=== PATIENT | male | born 1935 | race Caucasian/White ===

== ENCOUNTER 2016-12-02 05:27 | Emergency (ER) | payer MEDICARE ==
[2016-12-02] MEDS ORDERED: MECLIZINE 12.5 MG TABLET PO STA (07:40)
[2016-12-02] MEDS ORDERED: MECLIZINE 12.5 MG TABLET PO ONE (07:43)
== END 2016-12-02 08:01 | disposition home or self-care (01) ==
DX: R42 Dizziness and giddiness (principal); I10 Essential (primary) hypertension; F17.200 Nicotine dependence, unspecified, uncomplicated
CPT/HCPCS: 36415; 70450; 71020; 80048; 84484; 85025; 93005; 93010; 99283; 99284; A9270

== ENCOUNTER 2021-12-17 08:00 | Outpatient (CLI) | payer BC, MEDICARE | END 2021-12-17 08:01 | disposition home or self-care (01) | LOC: LAB.S 08:00 | PROVIDERS: ATTEND Physician Assistant Medical | DX: U07.1 COVID-19 (principal) | CPT/HCPCS: 87275; 87276 ==

== ENCOUNTER 2021-12-17 08:00 | Outpatient (CLI) | payer BC, MEDICARE ==
--- NOTE | 2021-12-17 14:03 | XRAY Report ---
PROCEDURE: Chest 2 View X-Ray INDICATIONS: COUGH/CHEST CONGESTION TECHNIQUE: 2 view(s) of the chest. COMPARISON: 12/02/2016 FINDINGS: Surgical changes and devices: None. Lungs and pleura: An incomplete inspiratory result is noted, with low lung volumes and crowding of t he vascular markings. No focal infiltrates are seen. No large pneumothorax or large pleural effusion can be seen. Mediastinum: Mediastinal contours are normal. Heart size is normal. Bones and chest wall: Remote right posterior lateral rib fractures are seen, which are unchanged from the prior. Age-appropriate degenerative changes are seen. No suspicious bony abnormalities. Soft tissues appear unremarkable. IMPRESSION: Limited portable chest examination, without an acute abnormality identified. No focal in filtrates are seen. Reviewed by: Osman Prado MD on 12/17/2021 1:02 PM PIETER Approved by: Osman Prado MD on 12/17/2021 1:02 PM PIETER Station ID: [id number]
== END 2021-12-17 23:59 | disposition home or self-care (01) ==
LOC: DI.S 08:00
PROVIDERS: ATTEND Physician Assistant Medical
DX: R05.9 Cough, unspecified (principal); R09.89 Other specified symptoms and signs involving the circulatory and respiratory systems

== ENCOUNTER 2024-01-13 15:45 | Outpatient (CLI) | payer MEDICARE | END 2024-01-13 23:59 | disposition critical access hospital (66) | LOC: EMS 15:45 | DX: S01.01XA Laceration without foreign body of scalp, initial encounter (principal); R04.0 Epistaxis; W11.XXXA Fall on and from ladder, initial encounter; Y92.009 Unspecified place in unspecified non-institutional (private) residence as the place of occurrence of the external cause | CPT/HCPCS: A0425; A0429 ==

== ENCOUNTER 2024-01-13 16:11 | Emergency (ER) | payer MEDICARE ==
--- NOTE | 2024-01-13 16:59 | CT Report ---
PROCEDURE: CT Brain without contrast INDICATIONS: fall off ladder, pain TECHNIQUE: Helical axial CT of the brain was obtained without contrast and reformatted in multiple p lanes. Radiation dose reduction was achieved using automated exposure control or adjustment of mA and /or kV according to patient size. COMPARISON: None FINDINGS: CSF spaces: Ventricles are appropriate in size and position. No hydrocephalus. Basal cisterns unre markable. Brain: No midline shift. No intracranial masses or hemorrhage. Campos-white matter interface is norm al. Skull and face: Calvarium and skull base are unremarkable without suspicious lesion. Occipital scal p soft tissue swelling/hematoma Sinuses: Visualized sinuses and mastoids are clear. IMPRESSION: Occipital scalp hematoma without skull fracture or intracranial hemorrhage Reviewed by: Ricardo Boswell MD on 01/13/2024 3:58 PM PIETER Approved by: Ricardo Boswell MD on 01/13/2024 3:58 PM AKBILLY Station ID: [id number]
--- NOTE | 2024-01-13 17:47 | ED Physician Documentation ---
History of Present Illness - Stated complaint Stated Complaint: FALL FROM LADDER - Chief complaint Chief Complaint: Trauma Hd/Nk - History obtained from History obtained from: Patient, Family, EMS - History of Present Illness Timing: Today Pain level max: 3 Pain level now: 0 - Additonal information Additional information: 88-year-old male was on the first rung of a ladder trying to change a hummingbird feeder when he fell backwards striking his head on concrete. No loss of consciousness. No vomiting. No numbness or tingling. Laceration to the occiput. Tetanus up-to-date Patient not anticoagulated. Placed in a c- collar by EMS. No pain to the shoulders, hips, knees, elbows, wrists. No abdominal pain or chest pain. No syncope or near syncope. No back pain. Review of Systems Constitutional: denies: Fever GI: denies: Nausea, Vomiting Skin: denies: Rash Musculoskeletal: denies: Back pain Neurologic: denies: Focal weakness, Numbness, Seizure, Confused, LOC PD PAST MEDICAL HISTORY - Past Medical History Cardiovascular: Hypertension Respiratory: None Endocrine/Autoimmune: None GI: None : None HEENT: None Psych: None Musculoskeletal: None Derm: None - Past Surgical History Past Surgical History: Yes General: Cholecystectomy Ortho: Hip replacement - Present Medications Home Medications: Ambulatory Orders Medication Instructions Recorded Confirmed Lipitor 1 mg PO DAILY 12/02/16 12/02/16 Meclizine [Antivert] 25 mg PO Q6H PRN #20 tablet 12/02/16 Statins 1 mg PO DAILY 12/02/16 Tapzone Glucose Intolerance. 1 mg PO DAILY 12/02/16 - Allergies Allergies/Adverse Reactions: Allergies Allergy/AdvReac Type Severity Reaction Status Date / Time No Known Drug Allergies Allergy Verified 01/13/24 16:52 - Social History Does the pt smoke?: Yes Smoking Status: Current every day smoker Does the pt drink ETOH?: No Does the pt have substance abuse?: No - Immunizations Immunizations are current?: Yes - POLST Patient has POLST: No PD ED PE NORMAL - Vitals Vital signs reviewed: Yes - General General: Alert and oriented X 3, No acute distress, Well developed/nourished, Other - HEENT HEENT: PERRL, EOMI, Ears normal, Moist mucous membranes, Pharynx benign, Other (2 cm laceration to the occiput, curved. No palpable skull fractures.) - Neck Neck: Supple, no meningeal sign, No bony TTP - Cardiac Cardiac: RRR, Strong equal pulses - Respiratory Respiratory: No respiratory distress, Clear bilaterally - Abdomen Abdomen: Soft, Non tender, Non distended - Back Back: No CVA TTP, No spinal TTP - Derm Derm: Warm and dry - Extremities Extremities: No deformity, Normal ROM s pain, Other (Full range of motion of all major joints without pain.) - Neuro Neuro: Alert and oriented X 3, account support associate 2-12 intact, No motor deficit, No sensory deficit, Normal speech Eye Opening: Spontaneous Motor: Obeys Commands Verbal: Oriented GCS Score: 15 - Psych Psych: Normal mood, Normal affect Results - Vitals Vitals: Vital Signs - 24 hr 01/13/24 01/13/24 01/13/24 16:20 16:57 18:25 Temperature 36.8 C Heart Rate 57 L 61 61 Respiratory 17 18 13 Rate Blood Pressure 147/81 H 146/65 H 138/72 H O2 Saturation 94 93 92 01/13/24 19:05 Temperature 36.7 C Heart Rate 59 L Respiratory 13 Rate Blood Pressure 138/72 H O2 Saturation 92 Oxygen O2 Source Room air - Rads (name of study) Head CT Relevant Findings:: Final report received, See rad report Cervical spine CT Relevant Findings:: Final report received, See rad report Procedures - Laceration (location) Occiput Length in cm: 2 Wound type: Curved, Into subcut fat, Clean Neurovascular status: Sensory intact, Motor intact, Vascular intact Wound preparation: Irrigated copiously NS, Wound explored, To the base Skin layer closure: Fowler Other: Patient tolerated well, No complications, Neurovascular intact, Tetanus UTD PD Medical Decision Making - ED course Complexity details: reviewed results, re-evaluated patient, considered differential, d/w patient ED course: No acute findings on head CT or cervical spine CT. Does have a laceration to the occiput that was repaired with steven. Tolerated well. No other acute traumatic injuries. Ambulating without difficulty. Using all extremities without difficulty. Head injury instructions given at bedside. Tetanus up-to-date Patient and family counseled regarding signs and symptoms for which I believe and urgent re-evaluation would be necessary. Patient with good understanding of and agreement to plan and is comfortable going home at this time This document was made in part using voice recognition software. While efforts are made to proofread this document, sound alike and grammatical errors may occur. Departure - Departure Disposition: 01 Home, Self Care Clinical Impression: Closed head injury Qualifiers: Encounter type: initial encounter Qualified Code(s): S09.90XA - Unspecified injury of head, initial encounter Laceration of occipital region of scalp Qualifiers: Encounter type: initial encounter Qualified Code(s): S01.01XA - Laceration without foreign body of scalp, initial encounter Condition: Good Instructions: ED Head Injury Closed, ED Laceration Scalp Stitch Or Stap Follow-Up: your,doctor in 10-14 days for staple removal [Other] Comments: Your head and cervical spine CT do not show any acute abnormalities today. Please follow-up with your doctor for further care. Please return if you worsen. Please keep the wound clean. The steven should be removed in approximately 10 to 14 days with your doctor. Forms: PCP List Discharge Date/Time: 01/13/24 19:02
--- NOTE | 2024-01-13 18:15 | CT Report ---
PROCEDURE: CT cervical spine without contrast INDICATIONS: fall off ladder, pain TECHNIQUE: Helical axial CT of the cervical spine was obtained without contrast and reformatted in m ultiple planes. Radiation dose reduction was achieved utilizing automated exposure control or adjus tment of mA and/or kV according to patient size. COMPARISON: None. FINDINGS: Bones: No fractures or dislocations. Visualized superior ribs are intact. Disc space narrowing and hypertrophic arthropathy present in the mid to lower cervical spine. 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 Soft tissues: Prevertebral soft tissues are normal in thickness. No paravertebral hematomas. No ap ical pneumothoraces. IMPRESSION: Degenerative disc disease and arthropathy without evidence of fracture or traumatic malalignment Reviewed by: Ricardo Boswell MD on 01/13/2024 5:13 PM AKBILLY Approved by: Ricardo Boswell MD on 01/13/2024 5:13 PM AKBILLY Station ID: [id number]
[2024-01-13 19:11] VITALS: BP 138/72; O2SAT 92
== END 2024-01-13 19:02 | disposition home or self-care (01) ==
LOC: EDUNIT# → ED 16:11
DX: S01.01XA Laceration without foreign body of scalp, initial encounter (principal); W11.XXXA Fall on and from ladder, initial encounter; F17.210 Nicotine dependence, cigarettes, uncomplicated; I10 Essential (primary) hypertension; M48.02 Spinal stenosis, cervical region
CPT/HCPCS: 12001; 99284